=== PATIENT | female | born 2000 | race Caucasian/White ===

== ENCOUNTER 2023-11-08 13:41 | Emergency (ER) | payer BC, MEDICAID, SELFPAY ==
[2023-11-08 13:44] VITALS: BP 135/100; PULSE 90; RESP 16; TEMP 36.7; O2SAT 98
[2023-11-08 14:22] VITALS: BP 137/99; PULSE 93; O2SAT 98
--- NOTE | 2023-11-08 14:31 | CTR_ITS ---
PROCEDURE INFORMATION: Exam: CT Head Without Contrast Exam date and time: 11/08/2023 2:53 PM Age: 23 years old Clinical indication: Speech disturbance and weakness, extremity; Left; Slurred speech; Additional info: Facial palsy with headache TECHNIQUE: Imaging protocol: Computed tomography of the head without contrast. Radiation optimization: All CT scans at this facility use at least one of these dose optimization techniques: automated exposure control; mA and/or kV adjustment per patient size (includes targeted exams where dose is matched to clinical indication); or iterative reconstruction. COMPARISON: No relevant prior studies available. RADIATION DOSE METRICS: Total DLP (mGy-cm): 997.78 FINDINGS: Brain: The brain is unremarkable. There is no mass effect or significant white matter disease. There is no acute intracranial hemorrhage. Cerebral ventricles: There is no significant ventricular dilation. The basal cisterns are unremarkable. Paranasal sinuses: The paranasal sinuses are clear. Mastoid air cells: The mastoid air cells are clear. Bones: The calvarium is intact. Soft tissues: The visible extracranial soft tissues are unremarkable. CT/CT head wo con* [id number] IMPRESSION: No acute intracranial abnormality.
[2023-11-08] MEDS: valACYclovir 1,000 mg Tablet 1000 MG PO (15:09)
[2023-11-08] MEDS: predniSONE 20 mg Tablet 60 MG PO (15:09)
--- NOTE | 2023-11-08 15:34 | ED_ITS ---
HPI - Headache General: Chief Complaint: Headache Stated Complaint: numbness on left side of face, headache Time Seen by Provider: 11/08/23 13:51 History of Present Illness: 23-year-old female presents to the ER wi th family present chief complaint of having left-sided facial droop that started patient was sent in from the urgent care for further assessment manage she denies any arm or leg weakness or any other associate symptoms she did report having about a migraine headache before patient reports difficulty closing her left eye of the steering in which she is also had facial droop involving her left lips patient reports recent cough and respiratory congestion she denies any other associated symptoms. Associated symptoms: Deny chest pain, fever(s), malaise, nausea, rash or vomiting Related Data Home Medications Medication Instructions Recorded Confirmed bupropion HCl 150 mg 24 hr tablet, 150 mg PO QAM 11/08/23 11/08/23 extended release cholecalciferol (vitamin D3) 125 125 mcg PO DAILY 11/08/23 11/08/23 mcg (5,000 unit) capsule propranolol 20 mg tablet 10 mg PO BID 11/08/23 11/08/23 Previous Rx's Medication Instructions Recorded acyclovir 400 mg tablet 400 mg PO 5XD 7 days #35 tabs 11/08/23 prednisone 50 mg tablet 50 mg PO DAILY 7 days #7 tabs 11/08/23 Allergies Allergy/AdvReac Type Severity Reaction Status Date / Time No Known Allergies Allergy Verified 11/08/23 13:48 Review of Systems General: Reports: 10 or more systems reviewed and unremarkable except in HPI and below Const: Denies: fever(s), chills, fatigue or malaise Eyes: Denies: change in vision or blurry vision Card: Denies: chest pain or palpitations Resp: Denies: dyspnea or productive cough GI: Denies: abdominal pain, nausea or vomiting : Denies: flank pain Musc: Denies: extremity pain or extremity swelling Skin/Breast: Denies: rash or pruritus Neuro: Reports: headache(s) and other (Left-sided facial weakness) Psych: Denies: anxiety or depression Terell/Lymph: Denies: easy bleeding All/Imm: Denies: urticaria, throat swelling or facial swelling PFSH ED PFSH: Social History Smoking and tobacco/nicotine status: never used tobacco/nicotine Physical Exam Const: COMMON NORMALS: no acute distress, patient oriented x3 and healthy appearing HENMT: COMMON NORMALS: normocephalic (Forehead involving left-sided facial weakness nasolabial fold reduced diffi) and atraumatic HEAD & SCALP: normocephalic (Forehead involving left-sided facial weakness nasolabial fold reduced diffi) and atraumatic OTHER: Left-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 involving the forehead is is mildly injected with nasolabial fold reduced on the left with droop appreci ated no tongue deviation noted no other obvious focal neurodeficits noted Eye: COMMON NORMALS: Equal, round and reactive pupils present and EOMs intact bilaterally PUPIL: Yes Equal, round and reactive pupils present Neck/C-Spine: COMMON NORMALS: full ROM, supple and no JVD Lymph: LYMPHATIC: no lymphadenopathy noted Chest: COMMONS NORMALS: normal inspection of the chest and normal palpation of entire chest wall Resp: COMMON NORMALS: normal respiratory effort, No retractions and clear to auscultation bilaterally EFFORT & INSPECTION: Yes able to speak in complete sentences and Yes symmetric chest movement AUSCULTATION: clear to au scultation bilaterally Cardio: COMMON NORMALS: no JVD, regular rate and regular rhythm RATE: regular rate RHYTHM: regular rhythm GI: COMMON NORMALS: Normal to inspection, nondistended, normoactive bowel sounds present, Soft to palpation and non-tender INSPECTION: Yes normal to inspection PALPATION: Yes Soft to palpation : COMMON NORMALS: Yes no CVA tenderness BLADDER/KIDNEY EXAM: Yes no CVA tenderness Back/Pelvis: COMMON NORMALS: no CVA tenderness Extremity: COMMON NORMALS: normal to inspection and full ROM Neuro: COMMON NORMALS: patient oriented x3, CN's II-XII intact bilaterally, moves all extremities and no focal motor deficits Psych: COMMON NORMALS: mental status grossly normal, Normal thought process present, cooperative and normal affect THOUGHT PROCESS: Normal thought process present Skin: COMMON NORMALS: no rashes or lesions noted GENERAL SKIN EXAM: no rashes or lesions noted Course Vital Signs: Vital signs: Vital Signs Temperature 98.1 F 11/08/23 13:44 Pulse Rate 93 11/08/23 14:22 Respiratory Rate 16 11/08/23 13:44 Blood Pressure 137/99 11/08/23 14:22 Pulse Oximetry 98 11/08/23 14:22 Oxygen Delivery Me thod Room Air 11/08/23 14:22 MDM - Headache Medical Decision Making Due to patient being sent over from urgent care as well as her pre-existing headache will be taking a CT imaging of the head without contrast for further eval clinically on exam patient appears to be a Copeland's palsy anticipate discharge home with additional medications for this. CT imaging of the head came back unremarkable patient will be treated for Copeland's palsy advised further follow-up with primary care in 3 to 5 days which patient family advised return the interim if any of her symptoms persist or worse. Lab Data Radiology Impressions Head CT 11/08/23 14:31 IMPRESSION: No acute intracranial abnormality. XR interpretation done by ED provider, pending radiology final review Discharge Plan Discharge Patient Disposition: Home Clinical Impression: Facial paralysis, Left-sided Copeland's palsy Condition: Stable Prescriptions: New acyclovir 400 mg tablet 400 mg PO 5XD 7 Days Qty: 35 0RF Rx Instructions: space evenly during waking hours prednisone 50 mg tablet 50 mg PO DAILY 7 Days Qty: 7 0RF No Action bupropion HCl 150 mg tablet extended release 24 hr 150 mg PO QAM propranolol 20 mg tablet 10 mg PO BID cholecalciferol (vitamin D3) 125 mcg (5,000 unit) capsule 125 mcg PO DAILY Discharge Orders: Discharge ED (Routine); Ordered 11/08/23 Ordered By: Emilio Shields Discharge Diet: Advance as tolerated Discharge Activity: Increase activity as tolerated Patient Instructions: Copeland Palsy (ED) Activity Restrictions/Additional Instructions: Take medications as prescribed please use our official tears to your symptoms have resolved to reduce likelihood of your eye drying developing a corneal abrasion .please further follow-up primary care in 3 to 5 days and was to return in 12 if any of your symptoms persist or worse. Coding Level of Care Code ED Leadership Development [employer] for [employer] [place]
[2023-11-08 16:50] VITALS: BP 126/89; PULSE 89; O2SAT 96
== END 2023-11-08 16:45 | disposition home or self-care (01) ==
PROVIDERS: Emergency Provider Emergency Medicine
DX: G51.0 Bell's palsy (principal)
CPT/HCPCS: 70450; 99284; J7512